=== PATIENT | male | born 1990 ===

== ENCOUNTER 2024-04-14 16:09 | Emergency (ER) | payer SELFPAY | END 2024-04-14 18:43 | disposition home or self-care (01) | LOC: MW.ED 16:09 | DX: G89.29 Other chronic pain (principal); M25.512 Pain in left shoulder; I10 Essential (primary) hypertension; Z88.0 Allergy status to penicillin; Z79.899 Other long term (current) drug therapy | CPT/HCPCS: 73030-26-LT; 73030-LT; 99283 ==